=== PATIENT | female | born 1955 | race African-American/Black ===

== ENCOUNTER 2018-08-15 09:44 | Outpatient (CLI) | payer OTHER ==
--- NOTE | 2018-08-15 11:43 | MMO ---
BILATERAL SCREENING MAMMOGRAM: INDICATIONS: Annual exam. COMPARISON: 05/11/2017, 03/30/2016, 10/31/2014 FINDINGS: Interpretation of the examination was assisted with computer aided detection. There are scattered fibroglandular elements bilaterally. There are benign appearing calcifications within the right and left breasts. There are stable intram ammary lymph nodes seen within the outer aspect of the left and right breasts. There are benign sca ttered densities within the right and left breasts. No new suspicious mass, cluster of microcalcification, or area of architectural distortion is evident . IMPRESSION: BI-RADS Category 2-Benign. Recommend routine annual mammographic screening. POS: JHONNY
== END 2018-08-15 09:45 | disposition home or self-care (01) ==
LOC: SCSMAMMO 09:44
PROVIDERS: ATTEND Obstetrics & Gynecology
DX: Z12.31 Encounter for screening mammogram for malignant neoplasm of breast (principal)
CPT/HCPCS: 77067

== ENCOUNTER 2018-08-21 12:41 | Outpatient (CLI) | payer OTHER ==
--- NOTE | 2018-08-21 14:47 | ULT ---
THYROID ULTRASOUND: HISTORY: Thyroid nodule. COMPARISON: None. TECHNIQUE: Sagittal and transverse imaging of the thyroid gland is performed. FINDINGS: The thyroid isthmus measures 0.9 cm. The right thyroid lobe measures 1.8 x 1.9 x 5 cm. The left thyroid lobe measures 2.2 x 2.4 x 5 cm. Multiple nodules throughout the thyroid gland. Hypoechoic focus in the thyroid isthmus measuring 0.6 x 0.5 x 0.6 cm. There is blood flow. Solid nodules in the right thyroid lobe are noted. The large st nodule in the right thyroid lobe measures 1.0 x 0.9 x 1.8 cm and has flow. The largest nodule in the left thyroid lobe measures 2.0 x 3.0 x 1.5 cm and has blood flow. The largest nodule in the left thyroid lobe has a mixed solid and cystic echotexture. IMPRESSION: Multiple nodules in the left and right thyroid lobe, as well as isthmus. The TI-RADS calculator scor e of the largest nodule in the thyroid gland, involving the left thyroid lobe, is TR3. Follow-up paty ging in six months is recommended. POS: JHONNY
== END 2018-08-21 12:42 | disposition home or self-care (01) ==
LOC: ULT 12:41
PROVIDERS: ATTEND Advanced Practice Midwife
DX: E04.2 Nontoxic multinodular goiter (principal)
CPT/HCPCS: 76536

== ENCOUNTER 2018-09-04 08:01 | Outpatient (CLI) | payer OTHER ==
--- NOTE | 2018-09-04 10:25 | MRI ---
MRI LEFT SHOULDER: Date: 09-04-18 Provided Clinical History: Left shoulder pain. FINDINGS: There is low grade partial thickness undersurface tearing involving the anterior distal conjoined ten don of the foot plate. The components of the rotator cuff appear otherwise intact. The long head emily ps tendon appears intact and normally located. The glenoid labrum and glenohumeral articular cartilage are suboptimally evaluated in the absence of joint distention but appear grossly normal. The amount of fluid within the glenohumeral joint appears physiologic. There is greater than physiologic subbrachial subdeltoid bursal fluid. Acromioclavicular joint osteoarthrosis is demonstrated with mild mass effect upon the subjacent supra spinatus. No focal concerning regional marrow or muscular signal abnormality is evident. IMPRESSION: 1. Low grade partial thickness undersurface tearing involving the anterior distal conjoined tendon at the foot plate. 2. Greater than physiologic subacromial subdeltoid bursal fluid, compatible with bursitis. 3. Acromioclavicular joint osteoarthrosis. POS: ELLE
== END 2018-09-04 08:02 | disposition home or self-care (01) ==
LOC: MRI 08:01
PROVIDERS: ATTEND Orthopaedic Surgery
DX: M75.102 Unspecified rotator cuff tear or rupture of left shoulder, not specified as traumatic (principal); M19.012 Primary osteoarthritis, left shoulder

== ENCOUNTER 2019-02-26 13:02 | Outpatient (CLI) | payer OTHER ==
--- NOTE | 2019-02-26 13:53 | ULT ---
THYROID ULTRASOUND: CLINICAL HISTORY: Thyroid Nodule COMPARISON:08/21/2018 FINDINGS: Right thyroid lobe: Measures 5 x 1 0.5, 1.9 cm. Numerous cystic and solid-appearing nodules in the r ight thyroid lobe are present measuring up to approximately 1 cm, with a dominant 1 cm nodule demonstrating solid echotexture at the midportion. Left thyroid lobe: Measures 5.4 x 1.9 x 2.4 cm. Scattered nodules predominantly solid in echotexture occupy the left thyroid lobe the largest of which is located superiorly, 2.4 cm Isthmus: Measures 1 cm. Hypoechoic nodules of the isthmus are present measuring subcentimeter in siz e IMPRESSION: Redemonstration of multiple bilateral thyroid nodules as well as involving the isthmus. Dominant nodu le, within left thyroid lobe is stable to smaller in size, and remains complex in echotexture. Consider continued six-month follow-up exam. Transcribed Date/Time: 02/26/2019 2:01 PM
== END 2019-02-26 13:03 | disposition home or self-care (01) ==
LOC: BICULT 13:02
PROVIDERS: ATTEND Advanced Practice Midwife
DX: E04.2 Nontoxic multinodular goiter (principal)
CPT/HCPCS: 76536

== ENCOUNTER 2019-08-16 08:01 | Outpatient (CLI) | payer OTHER ==
--- NOTE | 2019-08-16 09:03 | MMO ---
Bilateral MAMMO Bilat Screen [facility]. CLINICAL HISTORY: Patient is 63 years old and is seen for screening. The patient has the following family history of breast cancer: sister, at age 58, malignant (generic). The patient has no personal history of cancer. VIEWS: The views performed were: bilateral craniocaudal with tomosynthesis; bilateral mediolateral oblique with tomosynthesis; and cleavage view. FILMS COMPARED: The present examination has been compared to prior imaging studies performed at [facility] on 10/31/2014, 03/30/2016, 05/11/2017 and 08/15/2018. This study has been interpreted with the assistance of computer-aided detection. MAMMOGRAM FINDINGS: There are scattered fibroglandular densities. There are stable benign appearing calcifications seen in both breasts. There are no suspicious masses, calcifications or areas of architectural distortion. There are no suspicious masses, suspicious calcifications, or new areas of architectural distortion. IMPRESSION: THERE IS NO MAMMOGRAPHIC EVIDENCE OF MALIGNANCY. A ROUTINE FOLLOW-UP MAMMOGRAM IN 1 YEAR IS RECOMMENDED. THE RESULTS OF THIS EXAM WERE SENT TO THE PATIENT. ACR BI-RADS Category 2 - Benign finding MAMMOGRAPHY NOTE: 1. A negative mammogram report should not delay a biopsy if a dominant of clinically suspicious mass is present. 2. Approximately 10% to 15% of breast cancers are not detected by mammography. 3. Adenosis and dense breasts may obscure an underlying neoplasm. Reported by: SAMANTHA SALES MD Electonically Signed: [id number]
== END 2019-08-16 08:02 | disposition home or self-care (01) ==
LOC: BICMAMMO 08:01
PROVIDERS: ATTEND Obstetrics & Gynecology
DX: Z12.31 Encounter for screening mammogram for malignant neoplasm of breast (principal); Z80.3 Family history of malignant neoplasm of breast
CPT/HCPCS: 77063; 77067

== ENCOUNTER 2019-09-18 12:11 | Day surgery (SDC) | payer OTHER ==
[2019-09-17 15:27] VITALS: BMI 31.1
[2019-09-18] MEDS ORDERED: Lidocaine 1% PF 5 ML VIAL ONE (12:57)
[2019-09-18] MEDS ORDERED: Sodium Bicarbonate 2.5 MEQ/5 ML VIAL ONE (12:57)
[2019-09-18 13:08] VITALS: BP 118/65; TEMP 97.8
--- NOTE | 2019-09-18 13:51 | ULT ---
EXAM: US Thyroid Needle Bx PROVIDED CLINICAL HISTORY: Multinodular thyroid gland with dominant nodule midportion left lobe of thyroid gland. Fine-needle as piration was requested of the dominant left thyroid nodule. COMPARISON: Thyroid ultrasound 02/26/2019 TECHNIQUE: After informed consent was obtained, patient was placed on the sonography table in the supine positio n. Limited sonographic evaluation of the left lobe of thyroid gland was performed. A dominant heterogeneous nodule in the midportion left lobe of the thyroid gland was localized. The area overlyi ng the nodule was meticulously prepped and draped in usual sterile fashion. The skin and subcutaneous tissues were infiltrated with buffered 1% lidocaine for local anesthesia. U tilizing concurrent real time ultrasound guidance, a total of four 25-gauge fine-needle aspiration specimens were obtained of the nodule. Hemostasis was achieved with direct pressure, and a dry steril e dressing was placed. The patient tolerated the procedure well and without immediate complication. IMPRESSION: 1. Dominant heterogeneous nodule with cystic and solid components in the midportion left lobe of thyr oid gland. 2. Technically successful ultrasound-guided fine-needle aspiration of the dominant nodule left lobe o f the thyroid gland. Pathology is currently pending.
== END 2019-09-18 13:25 | disposition home or self-care (01) ==
LOC: ULT 12:11
PROVIDERS: ATTEND Otolaryngology Plastic Surgery within the Head & Neck
DX: E04.1 Nontoxic single thyroid nodule (principal); K21.9 Gastro-esophageal reflux disease without esophagitis; Z79.899 Other long term (current) drug therapy
CPT/HCPCS: 60100; 76942; 88173; J2001